=== PATIENT | female | born 2000 | race Caucasian/White ===

== ENCOUNTER 2023-12-11 13:36 | Emergency (ER) | payer BC, SELFPAY ==
[2023-12-11 14:34] VITALS: BP 108/76; PULSE 79; RESP 16; TEMP 36.6; O2SAT 100
--- NOTE | 2023-12-11 14:35 | ED.FEMALEGU ---
HPI - Female Genitourinary General Chief complaint: Urogenital-Female Stated complaint: UTI SYMPTOMS Time Seen by Provider: 12/11/23 14:41 Source: patient and RN notes reviewed Mode of arrival: ambulatory Limitations: no limitations History of Present Illness HPI Narrative: 23-year-old female presents with concern for one-week history of dysuria, urine frequency. Reports she has taken [id number] cranberry pills without improvement. She denies fever, body aches, chills, sweats. She denies nausea, vomiting, back pain, abdominal pain MD elicited complaint: UTI Related Data Home Medications Medication Instructions Recorded Confirmed bupropion HCl 150 mg 24 hr tablet, 150 mg PO DAILY 12/11/23 12/11/23 extended release Allergies Allergy/AdvReac Type Severity Reaction Status Date / Time amoxicillin Allergy Rash Verified 12/11/23 14:43 cefdinir [From Omnicef] Allergy Rash Verified 12/11/23 14:43 Penicillins Allergy Rash Verified 12/11/23 14:43 prednisone Allergy Rash Verified 12/11/23 14:43 Review of Systems Review of Systems: CONSTITUTIONAL: Denies malaise, chills, sweats, or fever. CARDIOVASCULAR: Denies chest pain, palpitations, or edema. RESPIRATORY: Denies cough or dyspnea. GASTROINTESTINAL: Denies abdominal pain, nausea, vomiting, diarrhea GENITOURINARY: Reports dysuria, frequency. Denies urgency, suprapubic pressure. Denies flank pain or hematuria. SKIN: Denies rash or itching. MUSCULOSKELETAL: Denies back pain or myalgia. All systems reviewed & are unremarkable except as noted in HPI and below PMFSH Comments At time of signature, agree with nursing past medical, surgical, social and family history. There is no relevant family history pertinent to the presenting complaint Exam Narrative: GENERAL: Well-appearing, well-nourished, and in no acute distress. HEAD: Normocephalic. EYES: PERRLA, conjunctivae clear. NECK: Supple. No lymphadenopathy CHEST: Clear to auscultation. No respiratory distress. HEART: Regular rate and rhythm. ABDOMEN: Soft, nontender upon palpation, nondistended, normal active bowel sounds, no palpable or pulsatile masses, no guarding. No CVA tenderness. Suprapubic tenderness SKIN: Warm, dry, no rash. NEURO: Alert and oriented x3. PSYCH: Normal mood and affect Course Course Emergency Course: Patient is aware of diagnosis, understands and agrees to treatment plan. Anticipatory guidance given. Patient agrees to follow-up as directed and is aware of reasons to seek care at the emergency department. Portions of this record may have been created with voice recognition software Level of Care: Express Care Visit Vital Signs Vital signs: Vital Signs Temperature 97.8 F 12/11/23 14:34 Pulse Rate 79 12/11/23 14:34 Respiratory Rate 16 12/11/23 14:34 Blood Pressure 108/76 12/11/23 14:34 Pulse Oximetry 100 12/11/23 14:34 Temperature 97.8 F 12/11/23 14:34 Pulse Rate 79 12/11/23 14:34 Respiratory Rate 16 12/11/23 14:34 Blood Pressure 108/76 12/11/23 14:34 Pulse Oximetry 100 12/11/23 14:34 Reviewed. MDM - Female Genitourinary MDM Narrative Medical decision making narrative: Exam findings and UA show no acute concerns or changes; patient is non-toxic appearing and is in no distress. Patient is appropriate for outpatient treatment and follow-up. Differential Diagnosis Differential diagnosis: Likely urinary tract infection and cystitis Critical Care Time Critical Care Time Critical Care Time: No Discharge Plan Discharge Clinical Impression: Urinary tract infection Patient Disposition: Home, Self-Care Condition: Stable Instructions: Antibiotic Form, Urinary Tract Infection in Women (ED) Additional Instructions: We will send a urine culture to the lab; if the culture identifies an organism that the prescribed antibiotic will not treat, you will receive a phone call from an urgent care staff member and an appropr
[2023-12-11 14:50] LABS: EDUAAPPEAR Cloudy; EDUABILI Negative; EDUABLOOD 3+; EDUACOLOR1 Dark; EDUAGLUCOSE Negative; EDUAKETONE Negative; EDUALEUKO 2+; EDUANITRATE Negative; EDUAPROTEIN 3+; EDUASPGRAVITY 1.025; EDUAUROBILI 0.2
== END 2023-12-11 14:55 | disposition home or self-care (01) ==
PROVIDERS: Emergency Provider Nurse Practitioner
DX: N39.0 Urinary tract infection, site not specified (principal); B96.20 Unspecified Escherichia coli [E. coli] as the cause of diseases classified elsewhere; F41.9 Anxiety disorder, unspecified
CPT/HCPCS: 81003; 87077; 87086; 87088; 87186; 99203; G0463

== ENCOUNTER 2024-09-21 15:08 | Emergency (ER) | payer BC, SELFPAY ==
[2024-09-21 15:25] VITALS: BP 126/95; PULSE 87; RESP 16; TEMP 37.1; O2SAT 100
--- NOTE | 2024-09-21 16:09 | ED.GENADULT ---
HPI - General Adult General Chief complaint: Upper Respiratory Infection Stated complaint: SORE THROAT/LOWER PELVIC PAIN Source: patient Mode of arrival: ambulatory Limitations: no limitations History of Present Illness HPI narrative: Patient presents for evaluation of multiple complaints. Her primary concern is a sore throat that she has experienced for two days. She thought her symptoms were related to allergies. No recent sick contacts to her knowledge. She denies any otalgia, cough, SOB, fever, or chills. She has noticed some vaginal irritation for the past two days. She has noticed some thick white clumpy drainage which is consistent with discharge she has experienced in the past with a yeast infection. She is also concerned about some left sided pelvic cramping for the past two days. She states she had a medication induced on 08/20/24. She experienced vaginal bleeding for approximately eleven days thereafter. She has not had any recurrent bleeding since that time. She denies any urinary symptoms. She did have intercourse. Related Data Home Medications ?Medication ?Instructions ?Recorded ?Confirmed ?Last Taken ?Type bupropion HCl 150 mg 24 hr tablet, 150 mg PO DAILY 12/11/23 12/11/23 Unknown History extended release Allergies Allergy/AdvReac Type Severity Reaction Status Date / Time amoxicillin Allergy Rash Verified 12/11/23 14:43 cefdinir (From Omnicef) Allergy Rash Verified 12/11/23 14:43 Penicillins Allergy Rash Verified 12/11/23 14:43 prednisone Allergy Rash Verified 12/11/23 14:43 Review of Systems Review of Systems: CONSTITUTIONAL: Denies fever, chills, or sweats. EYES: Denies visual changes, redness, or discharge. ENT: reports sore throat. Denies rhinorrhea, congestion, or otalgia. CARDIOVASCULAR: Denies chest pain, palpitations, or edema. RESPIRATORY: Denies cough or dyspnea. GASTROINTESTINAL: Denies abdominal pain, nausea, vomiting, or diarrhea. GENITOURINARY: Reports left sided pelvic cramping. Reports vaginal irritation and thick white clumpy vaginal discharge. SKIN: Denies rash or itching. MUSCULOSKELETAL: Denies back pain, joint pain, or myalgia. NEUROLOGIC: Denies headache, numbness, dizziness, or weakness. PSYCHIATRIC: Denies anxiety or depression. [facility] Past Medical History Medical History No pertinent past medical history Surgical History Surgical History No pertinent past surgical history Family History Family History Mother Family history non-contributory Social History Social History (Updated 09/21/24 @ 16:17 by Vivek Hernandez [facility]) Substance use: never Gender identity (if verbalized by the patient): Female Sexual Orientation (if Verbalized by the Patient): Straight or Heterosexual Spiritual care concerns: No Exam Narrative: GENERAL: Well-appearing, well-nourished, and in no acute distress. HEAD: Normocephalic, atraumatic. EYES: PERRLA and EOMI. ENT: Nares clear, no rhinorrhea or epistaxis. Mucous membranes moist. Oropharynx without tonsillar hypertrophy exudate or other lesions. Bilateral TMs pearly [place] nonbulging NECK: Supple. No adenopathy or masses. No carotid bruits or JVD CHEST: Clear to auscultation. No respiratory distress. No wheezes rales or rhonchi HEART: Regular rate and rhythm. No murmur heard. Normal peripheral pulses. ABDOMEN: Soft, nontender, nondistended, normal active bowel sounds. GENITAL: No external genital lesions. Mild left adnexal tenderness. There is a moderate amount of mucous consistent drainage in vaginal vault EXTREMITIES: Normal range of motion. No edema. SKIN: Warm, dry, no rash. NEURO: No focal deficits. Alert and oriented x3. PSYCH: Normal mood and affect. Course Course Emergency Course: This is a 24 year old female who presented for evaluation of multiple concerns. Her strep was negative. Will send throat culture. In terms of her discharge we discussed several potential etiologies and treatments. She would like to hold off on STI treatment. Her discharge did not appear consistent with yeast in my opinion. Therefore, we opted to treat for BV. She did have some leukocytes present in her urine but likely 2/2 discharge as opposed to UTI. She did not have any urinary symptoms. In terms of her pain, we did discuss potentially having U/S performed. She declined going to the ER at this time for U/S as she states her pain is quite mild and she did agree to go there if she had worsening symptoms. She will otherwise follow up with PCP outpatient. Level of Care: Express Care Visit Vital Signs Vital signs: Vital Signs Temperature 37.1 C 09/21/24 15:25 Pulse Rate 87 09/21/24 15:25 Respiratory Rate 16 09/21/24 15:25 Blood Pressure 126/95 H 09/21/24 15:25 Pulse Oximetry 100 09/21/24 15:25 Temperature 37.1 C 09/21/24 15:25 Pulse Rate 87 09/21/24 15:25 Respiratory Rate 16 09/21/24 15:25 Blood Pressure 126/95 H 09/21/24 15:25 Pulse Oximetry 100 09/21/24 15:25 Medical Decision Making Vital Signs Vital Signs: Vital Signs Temperature 37.1 C 09/21/24 15:25 Pulse Rate 87 09/21/24 15:25 Respiratory Rate 16 09/21/24 15:25 Blood Pressure 126/95 H 09/21/24 15:25 Pulse Oximetry 100 09/21/24 15:25 Temperature 37.1 C 09/21/24 15:25 Pulse Rate 87 09/21/24 15:25 Respiratory Rate 16 09/21/24 15:25 Blood Pressure 126/95 H 09/21/24 15:25 Pulse Oximetry 100 09/21/24 15:25 Lab Data Labs: Lab Results 09/21/24 09/21/24 Range/Units 16:09 16:12 POC Urine Color Yellow POC Urine Clarity Clear POC Urine pH 7.0 POC Ur Specif [place] 1.020 POC Urine Protein Trace (Negative) POC Ur Glucose (UA) Negative (Negative) POC Urine Ketones Negative (Negative) POC Urine Blood Negative (Negative) POC Urine Nitrite Negative (Negative) POC Urine Bilirubin Negative (Negative) POC Urine Urobilinogen 1.0 POC U Leukocyte Esteras Trace (Negative) POC Urine HCG, Qual Negative (Negative) Bact Vaginosis Panel Pending Discharge Plan Discharge Clinical Impression: Vaginitis, Pharyngitis Patient Disposition: Home Condition: Stable Instructions: Antibiotic Form, Pharyngitis (ED), Vaginal Discharge (ED) Patient Language: [place] Prescriptions: New metronidazole 500 mg tablet 500 mg PO BID 7 Days Qty: 14 0RF No Action bupropion HCl 150 mg tablet extended release 24 hr 150 mg PO DAILY sulfamethoxazole-trimethoprim 800-160 mg tablet 1 tablet PO Q12H 7 Days Qty: 14 0RF Follow-up/Referrals: Trista,Anamaria [Other] Time of Disposition: 16:31
[2024-09-21 16:15] LABS: BEDSIDEPREGUCG Negative (Negative); EDUAAPPEAR Clear; EDUABILI Negative (Negative); EDUABLOOD Negative (Negative); EDUACOLOR1 Yellow; EDUAGLUCOSE Negative (Negative); EDUAKETONE Negative (Negative); EDUALEUKO Trace (Negative); EDUANITRATE Negative (Negative); EDUAPROTEIN Trace (Negative)
--- NOTE | 2024-09-21 16:37 | PC.NURSE ---
1620 Pelvic exam completed by provider with specimens collected. Patient tolerated without difficulty.
[2024-09-21 21:18] LABS: Trichomonas Vag PCR NOT DETECTED (NOT DETECTE)
[2024-09-21 21:41] LABS: Chlamydia trachomatis NOT DETECTED (NOT DETECTE); Neisseria gonorrhoeae PCR NOT DETECTED (NOT DETECTE)
[2024-09-22 19:17] LABS: Bacterial Vaginosis NEGATIVE (NEGATIVE)
== END 2024-09-21 16:38 | disposition home or self-care (01) ==
PROVIDERS: Emergency Provider Nurse Practitioner
DX: N76.0 Acute vaginitis (principal); J02.9 Acute pharyngitis, unspecified
CPT/HCPCS: 81003; 81025; 81513; 87070; 87081; 87086; 87491; 87591; 87661; 99213; G0463